=== PATIENT | female | born 1950 | race Asian ===

== ENCOUNTER 2018-10-02 07:16 | Day surgery (SDC) | payer BC ==
[2018-10-02] MEDS ORDERED: LIDOCAINE HCL 1% MPF 30 SOL ONE (08:06)
[2018-10-02] MEDS ORDERED: PROPOFOL 500 MG/50 ML EMU IV ONE (08:07)
[2018-10-02 09:40] VITALS: BP 158/81; PULSE 64; RESP 18; TEMP 97.6; O2SAT 96
== END 2018-10-02 10:10 | disposition home or self-care (01) ==
LOC: SURG 07:16
PROVIDERS: ATTEND Surgery
DX: Z12.11 Encounter for screening for malignant neoplasm of colon (principal); D50.9 Iron deficiency anemia, unspecified; R12 Heartburn
CPT/HCPCS: J2001; J2704